=== PATIENT | male | born 1965 | race Caucasian/White ===

== ENCOUNTER 2024-08-12 19:04 | Emergency (ER) | payer MEDICARE ==
[~2024-08-12] VITALS: Ht 190.5 cm; Wt 110.0 kg
[2024-08-12 19:39] LABS: COVID AG,FIA SOURCE NASAL SWAB
[2024-08-12] MEDS: AmLODIPine BESYLATE 10 MG TABLET PO ONE (19:39)
[2024-08-12] MEDS: IBUPROFEN 600 MG TABLET PO ONE (19:39)
[2024-08-12] MEDS: ACETAMINOPHEN 500 MG TABLET PO ONE (19:39)
[2024-08-12] MEDS: GuaiFENesin/D-METHORPHAN [SUGAR-FREE] 200-20MG/10 ML SYRUP UDCUP PO ONE (19:39)
[2024-08-12 19:48] LABS: SARS-COV2 (COVID) ANTIGEN,FIA Negative (Negative)
[2024-08-12 19:50] LABS: INFLUENZA TYPE A NEGATIVE FOR TYPE A (NEGATIVE); INFLUENZA TYPE B NEGATIVE FOR TYPE B (NEGATIVE)
[2024-08-12 20:45] LABS: BASOPHILS % (AUTO) 0.3 % (0.0-2.0); EOSINOPHILS % (AUTO) 0.9 % (1.0-6.0); HEMATOCRIT 45.7 % (41-53); HEMOGLOBIN 14.9 g/dL (13.5-17.5); LYMPHOCYTES # (AUTO) 1.1 K/uL (1.0-4.8); LYMPHOCYTES % (AUTO) 18.1 % (22.0-44.0); MEAN CORPUSCULAR HEMOGLOBIN 28.4 pg (26.0-34.0); MEAN CORPUSCULAR HGB CONC 32.6 G/dL (31.0-37.0); MEAN CORPUSCULAR VOLUME 87 fL (80-100); MONOCYTES # (AUTO) 0.6 K/uL (0.1-1.0); MONOCYTES % (AUTO) 9.7 % (2.0-9.0); NEUTROPHILS # (AUTO) 4.4 K/uL (1.8-7.7); PLATELET COUNT (AUTO) 174 K/uL (150-450); RED BLOOD CELL COUNT(AUTO) 5.25 MIL/uL (4.50-5.90); RED CELL DISTRIBUTION WIDTH 15.7 % (11.5-14.5); WHITE BLOOD COUNT (AUTO) 6.2 K/uL (4.5-11.0)
[2024-08-12 20:53] LABS: ANION GAP 6 mmol/L (8-16); CARBON DIOXIDE 30 mmol/L (22-29); CHLORIDE 100 mmol/L (98-107); CREATININE 1.16 mg/dL (0.60-1.30); GLOMERULAR FILTR. RATE CALC > 60 mL/min (>60); GLUCOSE,RANDOM 137 mg/dL (70-110); POTASSIUM 4.1 mmol/L (3.5-5.1); SODIUM SERUM 136 mmol/L (136-145); UREA NITROGEN, BLOOD 15 mg/dL (7-18)
[2024-08-12 22:19] VITALS: BP 173/99; PULSE 95; RESP 16; TEMP 98.9; O2SAT 98
[2024-08-12] MEDS ORDERED: WARF5TAB9 PO (22:27)
[2024-08-12] MEDS: WARFARIN SODIUM 5 MG TABLET PO ONE (22:35)
== END 2024-08-12 22:51 | disposition home or self-care (01) ==
LOC: EMS 19:04
DX: J06.9 Acute upper respiratory infection, unspecified (principal); B97.89 Other viral agents as the cause of diseases classified elsewhere; I10 Essential (primary) hypertension; Z59.01 Sheltered homelessness; Z76.0 Encounter for issue of repeat prescription; Z20.822 Contact with and (suspected) exposure to COVID-19
CPT/HCPCS: 71045; 80048; 85025; 87804; 99284; 36415-L1; 36415-TC

== ENCOUNTER 2024-08-28 22:02 | Emergency (ER) | payer MEDICARE ==
[~2024-08-28] VITALS: Ht 190.5 cm; Wt 121.4 kg
[~2024-08-28 22:02] MED LIST: WARF5TAB9 PO
[2024-08-28 22:33] VITALS: TEMP 97.8
[2024-08-28] MEDS: MAG HYDROX/ALUMINUM HYD/SIMETH 30 ML SUSPENSION UDCUP PO ONE (23:42)
[2024-08-28] MEDS: ONDANSETRON HCL 4 MG/2 ML VIAL IVP ONE (23:42)
[2024-08-28] MEDS: FAMOTIDINE 20 MG/2 ML VIAL IVP ONE (23:42)
[2024-08-28] MEDS: ACETAMINOPHEN 500 MG TABLET PO ONE (23:42)
[2024-08-28 23:45] LABS: BASOPHILS % (AUTO) 0.3 % (0.0-2.0); EOSINOPHILS % (AUTO) 0.7 % (1.0-6.0); HEMATOCRIT 47.2 % (41-53); HEMOGLOBIN 15.4 g/dL (13.5-17.5); LYMPHOCYTES # (AUTO) 1.7 K/uL (1.0-4.8); LYMPHOCYTES % (AUTO) 27.5 % (22.0-44.0); MEAN CORPUSCULAR HEMOGLOBIN 28.1 pg (26.0-34.0); MEAN CORPUSCULAR HGB CONC 32.7 G/dL (31.0-37.0); MEAN CORPUSCULAR VOLUME 86 fL (80-100); MONOCYTES # (AUTO) 0.7 K/uL (0.1-1.0); MONOCYTES % (AUTO) 10.9 % (2.0-9.0); NEUTROPHILS # (AUTO) 3.8 K/uL (1.8-7.7); NEUTROPHILS % (AUTO) 60.6 % (40.0-70.0); PLATELET COUNT (AUTO) 191 K/uL (150-450); WHITE BLOOD COUNT (AUTO) 6.3 K/uL (4.5-11.0)
[2024-08-28 23:49] LABS: ANION GAP 7 mmol/L (8-16); CALCIUM, TOTAL 9.1 mg/dL (8.8-10.5); CARBON DIOXIDE 29 mmol/L (22-29); CHLORIDE 100 mmol/L (98-107); CREATININE 0.98 mg/dL (0.60-1.30); GLOMERULAR FILTR. RATE CALC > 60 mL/min (>60); GLUCOSE,RANDOM 101 mg/dL (70-110); POTASSIUM 3.9 mmol/L (3.5-5.1); SODIUM SERUM 136 mmol/L (136-145); UREA NITROGEN, BLOOD 21 mg/dL (7-18)
[2024-08-28 23:50] LABS: LIPASE 22 U/L (16-77)
[2024-08-28 23:51] LABS: PROTHROMBIN TIME 20.5 SEC (9.4-11.6)
[2024-08-28 23:54] LABS: ALBUMIN 3.8 g/dL (3.4-5.0); BILIRUBIN,DIRECT 0.5 mg/dL (0.00-0.20); BILIRUBIN,TOTAL 2.1 mg/dL (0.1-1.0); TOTAL PROTEIN, SERUM 7.5 g/dL (6.4-8.2)
[2024-08-29 00:27] VITALS: BP 130/102; PULSE 80; RESP 18; O2SAT 98
[2024-08-29 01:07] LABS: APPEARANCE,URINE CLEAR (CLEAR); BILIRUBIN,URINE NEGATIVE (NEGATIVE); COLOR,URINE YELLOW (YELLOW); GLUCOSE, URINE (UA) NEGATIVE (NEGATIVE); KETONES,URINE TRACE mg/dL (NEGATIVE); LEUKOCYTE ESTERASE ,URINE NEGATIVE (NEGATIVE); NITRATE,URINE NEGATIVE (NEGATIVE); OCCULT BLOOD,URINE NEGATIVE (NEGATIVE); PH,URINE 5.5 (5.0-8.0); PROTEIN,URINE 30-70 mg/dL (NEGATIVE); SPECIFIC GRAVITIY, URINE 1.026 (1.003-1.030); UROBILINOGEN,URINE <=1.0 mg/dL (<=1.0)
[2024-08-29] MEDS ORDERED: ONDA-104 PO (01:34)
[2024-08-29] MEDS ORDERED: ACET-3385 PO (01:34)
== END 2024-08-29 03:32 | disposition home or self-care (01) ==
LOC: EMS 22:04
DX: R10.9 Unspecified abdominal pain (principal); R11.2 Nausea with vomiting, unspecified; I10 Essential (primary) hypertension; K76.0 Fatty (change of) liver, not elsewhere classified; Z79.01 Long term (current) use of anticoagulants
CPT/HCPCS: 99285; 74176; 96374; 96375; 80048; 80076; 81003; 83690; 85025; 85610; 85730; 36415; J3490; J2405